=== PATIENT | female | born 1960 | race Caucasian/White ===

== ENCOUNTER 2023-08-12 16:40 | Outpatient (CLI) | payer BC ==
--- NOTE | 2023-08-13 06:50 | XRAY Report ---
PROCEDURE: Hand 1-2V RT INDICATIONS: THUMB PX, RT TECHNIQUE: 3 views of the hand(s) acquired. COMPARISON: None. FINDINGS: Bones: No acute displaced fracture. No dislocation. Mild first CMC and STT degenerative changes. Sma ll periarticular posttraumatic or degenerative fragments and ossicles are seen, age-indeterminate Soft tissues: No suspicious calcifications. IMPRESSION: No acute radiographic abnormality. Small degenerative changes. Small scattered periarticular bone fra gments are probably from degeneration or remote injury. If there is high concern for further derangem ent, consider MRI evaluation. Reviewed by: Benny Waldrop MD on 08/13/2023 6:49 AM PDT Approved by: Benny Waldrop MD on 08/13/2023 6:49 AM PDT Station ID: [id number]
--- NOTE | 2023-08-13 06:54 | XRAY Report ---
PROCEDURE: Ankle 3+V RT INDICATIONS: Right ankle pain TECHNIQUE: 3 views of the ankle were acquired. COMPARISON: None. FINDINGS: Bones: No acute displaced fracture. The ankle mortise appears intact Soft tissues: No suspicious calcifications. IMPRESSION: No acute radiographic abnormality. If there is high concern for further derangement, consider MRI lawanda luation. Reviewed by: Benny Waldrop MD on 08/13/2023 6:52 AM PDT Approved by: Benny Waldrop MD on 08/13/2023 6:52 AM PDT Station ID: [id number]
== END 2023-08-12 16:41 | disposition home or self-care (01) ==
LOC: DI 16:40
PROVIDERS: ATTEND Emergency Medicine
DX: M18.11 Unilateral primary osteoarthritis of first carpometacarpal joint, right hand (principal); M19.041 Primary osteoarthritis, right hand; S93.491A Sprain of other ligament of right ankle, initial encounter